=== PATIENT | female | born 1995 | race Hispanic/Latino ===

== ENCOUNTER 2022-02-16 17:32 | Emergency (ER) | payer OTHER ==
[~2022-02-16] VITALS: Ht 162.6 cm; Wt 108.9 kg
[2022-02-16 18:15] LABS: HCG,QUALITATIVE URINE NEGATIVE (NEGATIVE)
[2022-02-16 18:18] LABS: APPEARANCE,URINE TURBID (CLEAR); BILIRUBIN,URINE NEGATIVE (NEGATIVE); COLOR,URINE RED (YELLOW); GLUCOSE, URINE (UA) NEGATIVE (NEGATIVE); KETONES,URINE 5 mg/dL (NEGATIVE); LEUKOCYTE ESTERASE ,URINE NEGATIVE Leu/uL (NEGATIVE); NITRATE,URINE NEGATIVE (NEGATIVE); OCCULT BLOOD,URINE LARGE (NEGATIVE); PROTEIN,URINE 100 mg/dL (NEGATIVE)
[2022-02-16 18:20] LABS: BASOPHILS % (AUTO) 0.4 % (0.0-5.0); EOSINOPHILS % (AUTO) 0.4 % (0.0-8.0); HEMATOCRIT 27.5 % (36-48); LYMPHOCYTES % (AUTO) 41.5 % (21.0-51.0); MEAN CORPUSCULAR HEMOGLOBIN 26.1 pg (27.0-33.0); MEAN CORPUSCULAR HGB CONC 33.1 g/dL (32.0-36.0); MEAN CORPUSCULAR VOLUME 78.8 fL (79-99); MONOCYTES % (AUTO) 6.1 % (3.0-13.0); NEUTROPHILS % (AUTO) 51.3 % (40.0-77.0); PLATELET COUNT (AUTO) 277 K/uL (130-400); RED BLOOD CELL COUNT(AUTO) 3.49 MIL/uL (4.00-5.50); RED CELL DISTRIBUTION WIDTH 14.5 % (11.0-15.5); WHITE BLOOD COUNT (AUTO) 7.2 K/uL (4.8-10.8)
[2022-02-16 18:22] LABS: RBC,URINE TNTC /HPF (0-1)
[2022-02-16 18:23] LABS: BACTERIA,URINE Rare /HPF (None Seen)
[2022-02-16 18:33] LABS: CREATININE 0.9 mg/dL (0.5-1.5); POTASSIUM 3.5 mmol/L (3.5-5.1)
[2022-02-16 18:37] LABS: ALBUMIN 3.7 g/dL (3.5-5.0); TOTAL PROTEIN, SERUM 7.4 g/dL (6.0-8.3)
[2022-02-16] MEDS ORDERED: 0.9%NACL 1000ML 2,000 ML IV ONE (20:00)
[2022-02-16 21:41] VITALS: BP 116/53
[2022-02-16] MEDS ORDERED: IBUP-1493 PO (22:13)
== END 2022-02-16 22:25 | disposition home or self-care (01) ==
LOC: EDH 17:32
DX: N94.6 Dysmenorrhea, unspecified (principal)
CPT/HCPCS: 99284; 86870; 96360; 76856; 80053; 85025; 86850; 86900; 86901; 86156; 81001; 81025; 36415; J7030